=== PATIENT | female | born 2000 | race Caucasian/White ===

== ENCOUNTER 2021-06-26 15:18 | Inpatient (IN) ==
[2021-06-26] MEDS ORDERED: OXYTOCIN 30 UNITS/500 ML BAG IV PRN ×2 (15:51)
--- NOTE | 2021-06-26 16:00 | History & Physical Report ---
Date of Service June 26, 2021 Assessment & Plan (1) Supervision of normal first : Plan: 21yo at 40.1 weeks GA. eIOL 1. Fetus: Cat 1 2. Labor: Start oxytocin will AROM when able. 3. GBS negative 4. Vitals normal (2) Chlamydia infection complicating : Admission and Anticipated Discharge Date Admission Date: June 26, 2021 History of Present Illness Primary Care Provider: NO PCP 21yo at 40.1 weeks GA. Presents for eIOL. complicated by chlamydia infection with negative SUZIE at 36 weeks. OB Labs: Blood Type AB Positive 01/06/21 Antibody Screen NEGATIVE 01/06/21 Hemoglobin 12.2 g/dL (12.0-16.0) 03/31/21 Hematocrit 36.0 % (37-47) L 03/31/21 Mean Corpuscular Volume 88.6 fL (80-100) 01/06/21 Platelet Count 251 K/uL (130-400) 01/06/21 Rubella IgG Antibody Immune (Immune) 01/06/21 Rapid Plasma Reagin Nonreactive (Nonreactive) 01/06/21 Hepatitis B Surface Antigen Neg (Neg) 01/06/21 HIV (1&2) Ab and P24 Ag, 4th Gener Neg (Neg) 01/06/21 Glucose 1 Hour 50 gm Load 93 mg/dl (70-130) 03/31/21 OB Optional Labs: Chlamydia trachomatis RNA NOT DETECTED (NOT DETECTED) 06/03/21 Neisseria gonorrhoeae RNA NOT DETECTED (NOT DETECTED) 06/03/21 Labs Reviewed: declined genetics/cf/sma Allergies Allergy/AdvReac Type Severity Reaction Status Date / Time No Known Allergies Allergy Verified 06/25/21 14:45 Home Medications Medication Instructions Recorded Confirmed Type prenat.vits,carly,[id number] 1 tab PO DAILY 12/30/20 06/26/21 History Patient History Medical History (Updated 05/12/21 @ 14:03 by Elayne Orr MD, FACOG) History of chicken pox Varicella vaccination Surgical History (Updated 12/30/20 @ 10:56 by Kate Barnes) S/P appendectomy S/P wisdom tooth extraction Family History (Updated 12/30/20 @ 10:58 by Kate Barnes) Aunt Ovarian cancer Breast cancer Grandmother (Maternal) Colorectal cancer Grandfather (Paternal) Parkinson disease Grandmother (Paternal) Diabetes Social History (Updated 12/30/20 @ 11:00 by Kate Barnes) Smoking Status: Former smoker Hx Alcohol Use: No Hx Substance Use: No Preferred Language: Cuban marital status: Single marital status details: miracle Golden (18) [phone] Current Living Situation: Parent Current Living Situation Comment: lives with mother, yogesh current occupational status: employed current occupation: [employer] Feels Safe at Home: Yes Physical Exam Genitourinary: OB Exam Abdomen: + vertex Manual OB Exam: + cervical dilation (2.5), + cervical effacement 80% and + station -1 OB Exam Monitor Tracing: + external FHT monitor used, + external uterine monitor used and + category I Results & Data ([facility]) Vital Signs (Past 12 Hours) Vital Signs Pulse BP 06/26/21 15:48 88 103/56 L Coding Level of Care Code None Diagnoses Supervision of normal first Z34.00 Chlamydia infection complicating O98.819; A74.9
[2021-06-26 16:22] LABS: Hematocrit (blood only) 33.9 % (37-47); Hemoglobin 11.8 g/dL (12.0-16.0); Mean Corpuscular Hgb Conc 34.8 g/dL (32-36); Mean Corpuscular Volume 86.3 fL (80-100); Platelet Count 274 K/uL (130-400); RDW Coefficient of Variation 12.7 % (11.5-14.5); RDW Standard Deviation 40.1 fL (36.4-46.3); Red Blood Count 3.93 M/uL (4.2-5.4); White Blood Count 14.88 K/uL (4.8-10.8)
[2021-06-26] MEDS: LACTATED RINGER'S 1,000 ML IV PRN ×3 (16:30→23:29)
[2021-06-26] MEDS ORDERED: ePHEDrine sulfate 50 MG/ML AMP IV PRN (20:39)
[2021-06-26] MEDS ORDERED: NALBUPHINE HCL INJ 10 MG/ML AMP IV PRN (20:39)
[2021-06-26] MEDS ORDERED: NALOXONE HCL 1 MG in SODIUM CHLORIDE 0.9% 1000ML 1,000 ML IV PRN (20:39)
[2021-06-26] MEDS ORDERED: ONDANSETRON INJ 2 MG/ML 2 ML VIAL IV PRN (20:39)
[2021-06-26] MEDS ORDERED: diphenhydrAMINE 50 MG/ML VIAL IV PRN (20:39)
[2021-06-26] MEDS ORDERED: NALOXONE HCL 0.4 MG/1 ML VIAL/CARP IV PRN (20:39)
[2021-06-26] MEDS ORDERED: fentaNYL 2MCG/ML ROPIVACAINE 1.25MG/ML 100 ML BAG EPI PRN (20:39)
[2021-06-26] MEDS ORDERED: fentaNYL citrate 100 MCG/2 ML VIAL ONE (20:41)
[2021-06-26] MEDS ORDERED: SODIUM CHLORIDE 0.9% INJ 10 ML VIAL ONE (20:41)
[2021-06-26] MEDS ORDERED: BUPIVACAINE 0.25% 30 ML VIAL ONE (20:41)
[2021-06-26] MEDS ORDERED: ePHEDrine sulfate 50 MG/ML AMP ONE (20:41)
[2021-06-26] MEDS ORDERED: fentaNYL 2MCG/ML ROPIVACAINE 1.25MG/ML 100 ML BAG EPI ONE (20:42)
--- NOTE | 2021-06-26 20:51 | Anesthesiology Consultation ---
Date of Service June 26, 2021 Assessment & Plan (1) Encounter for pre-operative examination: Chart Review Chart Review: Patient NOT seen in Pre Admission Testing and Acceptable Risk for Labor Epidural Consults Requested none ASA ASA2 Proposed Anesthesia Anesthesia Type: Labor Epidural and CSE Risk / Benefits Reviewed With: PT / POA / Parent / Guardian, Accepts Plan and Informed Consent Obtained History Height/Weight Height: 5 ft 4 in Weight: 70.307 kg Allergies Allergy/AdvReac Type Severity Reaction Status Date / Time No Known Allergies Allergy Verified 06/25/21 14:45 Medications Home Medications Medication Instructions Recorded Confirmed Last Taken prenat.vits,carly,[id number] 1 tab PO DAILY 12/30/20 06/26/21 06/23/21 Active Medications Generic Name Dose Route Start Last Admin Trade Name Freq PRN Reason Stop Dose Admin Oxytocin 30 units in 500 mls @ 8 mls/hr 06/26/21 15:51 06/26/21 18:45 Pitocin IV 06/28/21 15:50 0.48 units/hr .Q24H PRN 8 mls/hr Labor Induction/Augmentation Titration Protocol 0.48 UNITS/HR Lactated Ringer's 1,000 mls @ 125 mls/hr 06/26/21 15:51 06/26/21 16:30 Lr IV 06/28/21 15:50 125 mls/hr .Q8H PRN Administration L&D Protocol Protocol NPO Date Last Intake of Fluids: 06/26/21 Time Last Intake of Fluids: 19:00 Date Last Intake of Solids: 06/26/21 Time Last Intake of Solids: 15:00 Past Medical History Medical History History of chicken pox Varicella vaccination Exercise / Class Metabolic Activity II 4-5 Yardwork/Stairs/Walk up hill Past Family History Family History Aunt Ovarian cancer Breast cancer Grandmother (Maternal) Colorectal cancer Grandfather (Paternal) Parkinson disease Grandmother (Paternal) Diabetes Past Surgical History Surgical History S/P appendectomy S/P wisdom tooth extraction Past Anesthesia History No Hx of Anesthesia Complications and No Family Hx of Anesthesia Complications History of PONV No Hx of PONV and No Hx of Motion Sickness Social History Smoking Status: Former smoker Hx Alcohol Use: No Hx Substance Use: No Review of Systems no chest pain or sob Physical Exam Vital Signs Last Vital Signs Temp 37.0 C 06/26/21 19:15 Pulse 82 06/26/21 20:43 Resp 18 06/26/21 19:15 BP 131/62 06/26/21 20:20 Pulse Ox 100 06/26/21 20:43 ENMT Mouth: no TMJ abnormality Thyromental Distance: > or= 3.5 Finger Breadths Mallampati Class: II Neck normal visual inspection Respiratory normal respiratory effort Auscultation: lungs clear to auscultation bilaterally Cardiovascular Rate/Rhythm: regular rate and regular rhythm Musculoskeletal Spine: normal cervical ROM Neurologic moves all extremities Psychiatric Orientation: alert and oriented x 3 Testing Laboratory Results 06/26/21 16:11 Blood Type AB Positive 06/26/21 16:11 Antibody Screen NEGATIVE 06/26/21 16:11
[2021-06-27] MEDS ORDERED: LIDOCAINE 1% LOCAL 20 ML VIAL ONE (03:25)
[2021-06-27] MEDS ORDERED: ACETAMINOPHEN 325 MG TAB PO PRN (03:44)
[2021-06-27] MEDS ORDERED: BENZOCAINE 20% AER SPR 82.5 GM CAN EXT PRN (03:44)
[2021-06-27] MEDS ORDERED: HYDROCORTISONE ACETATE 25 MG SUPP PR PRN (03:44)
[2021-06-27] MEDS ORDERED: OXYTOCIN 30 UNITS/500 ML BAG IV PRN (03:44)
[2021-06-27] MEDS ORDERED: DIPHTHERIA/TETANUS/PERTUSSIS 0.5 ML SYR/VIAL IM ONE (03:44)
[2021-06-27] MEDS ORDERED: SUPERCREAM 0.870% 15 GM JAR EXT PRN (03:44)
[2021-06-27] MEDS ORDERED: bisacodyL 10 MG SUPP PR PRN (03:44)
--- NOTE | 2021-06-27 07:01 | Anesthesiology Progress Note ---
Date of Service June 27, 2021 Anesthesia Post Procedure Vital Signs Vital Signs: Temp Pulse Pulse Resp BP BP Pulse Ox 06/27/21 06:48 37.0 C 80 18 106/68 06/27/21 05:12 74 113/61 06/27/21 04:57 75 113/61 06/27/21 04:42 76 127/58 L 06/27/21 04:38 81 99 06/27/21 04:33 75 99 06/27/21 04:31 79 93 06/27/21 04:28 79 99 06/27/21 04:23 81 99 06/27/21 04:18 78 98 06/27/21 04:13 79 97 06/27/21 04:08 82 99 06/27/21 04:03 79 97 06/27/21 03:58 87 99 06/27/21 03:57 83 116/58 L 06/27/21 03:53 82 100 06/27/21 03:48 84 99 06/27/21 03:43 90 99 06/27/21 03:42 90 120/59 L 06/27/21 03:38 90 99 06/27/21 03:33 96 H 99 06/27/21 03:28 90 99 06/27/21 03:27 97 H 125/57 L 06/27/21 03:23 96 H 100 06/27/21 03:18 93 H 98 06/27/21 03:15 108 H 93 06/27/21 03:14 110 H 142/98 H 06/27/21 03:13 107 H 96 06/27/21 03:08 93 H 99 06/27/21 03:03 104 H 98 06/27/21 02:59 98 H 121/69 06/27/21 02:58 115 H 100 06/27/21 02:53 120 H 97 06/27/21 02:48 104 H 95 06/27/21 02:44 107 H 117/80 91 06/27/21 02:43 97 H 100 06/27/21 02:38 101 H 94 06/27/21 02:36 96 H 92 06/27/21 02:33 87 99 06/27/21 02:28 82 99 06/27/21 02:25 109 H 93 06/27/21 02:23 112 H 100 06/27/21 02:18 106 H 96 06/27/21 02:14 103 H 126/65 89 L 06/27/21 02:13 88 100 06/27/21 02:08 93 H 99 06/27/21 02:07 94 H 92 06/27/21 02:03 91 H 100 06/27/21 01:58 101 H 131/82 100 06/27/21 01:53 126 H 97 06/27/21 01:48 89 96 06/27/21 01:43 81 127/74 97 06/27/21 01:38 90 98 06/27/21 01:33 99 H 99 06/27/21 01:29 90 116/62 06/27/21 01:28 92 H 99 06/27/21 01:23 95 H 98 06/27/21 01:18 94 H 100 06/27/21 01:13 83 126/78 97 06/27/21 01:08 86 99 06/27/21 01:03 82 97 06/27/21 01:01 36.8 C 18 06/27/21 00:58 86 120/76 97 06/27/21 00:53 84 98 06/27/21 00:48 87 97 06/27/21 00:43 90 100 06/27/21 00:42 86 122/72 06/27/21 00:38 84 98 06/27/21 00:33 80 98 06/27/21 00:28 81 95 06/27/21 00:27 72 96/51 L 06/27/21 00:23 73 95 06/27/21 00:18 73 97 06/27/21 00:13 77 97 06/27/21 00:12 76 99/56 L 06/27/21 00:08 75 99 06/27/21 00:05 36.9 C 16 06/27/21 00:03 80 100 06/26/21 23:59 76 108/59 L 06/26/21 23:58 79 100 06/26/21 23:53 80 97 06/26/21 23:48 77 99 06/26/21 23:43 88 100 06/26/21 23:42 85 101/55 L 06/26/21 23:38 92 H 97 06/26/21 23:33 83 98 06/26/21 23:28 77 91/52 L 98 06/26/21 23:23 79 97 12/16/21 23:18 76 95 06/26/21 23:13 75 95 06/26/21 23:12 78 86/47 L 06/26/21 23:08 76 95 06/26/21 23:03 79 95 06/26/21 22:58 76 94 06/26/21 22:57 78 84/46 L 94 06/26/21 22:53 75 95 06/26/21 22:52 78 94 06/26/21 22:48 77 95 06/26/21 22:44 78 94 06/26/21 22:43 77 85/49 L 95 06/26/21 22:38 82 95 06/26/21 22:33 73 97 06/26/21 22:30 80 94/50 L 06/26/21 22:29 76 93/55 L 94 06/26/21 22:28 78 97 06/26/21 22:23 81 96 06/26/21 22:18 76 97 06/26/21 22:14 75 86/48 L 06/26/21 22:13 76 97 06/26/21 22:10 37.0 C 16 06/26/21 22:08 78 97 06/26/21 22:03 74 98 06/26/21 21:58 65 97 06/26/21 21:55 70 106/59 L 06/26/21 21:53 72 112/63 97 06/26/21 21:51 73 107/58 L 06/26/21 21:49 68 110/61 06/26/21 21:48 77 97 06/26/21 21:47 67 108/59 L 06/26/21 21:45 64 105/59 L 06/26/21 21:43 72 104/61 96 06/26/21 21:41 73 110/64 06/26/21 21:39 75 109/62 06/26/21 21:38 72 96 06/26/21 21:37 72 108/59 L 06/26/21 21:35 68 109/59 L 92 06/26/21 21:34 76 132/81 06/26/21 21:33 82 98 06/26/21 21:31 72 112/61 06/26/21 21:29 74 118/63 06/26/21 21:28 74 99 06/26/21 21:27 70 115/63 06/26/21 21:25 77 115/63 06/26/21 21:23 81 111/62 98 06/26/21 21:21 70 114/64 06/26/21 21:19 75 107/55 L 06/26/21 21:18 81 119/60 97 06/26/21 21:17 78 115/58 L 06/26/21 21:15 78 115/57 L 06/26/21 21:13 76 113/65 97 06/26/21 21:11 78 115/71 06/26/21 21:09 77 114/66 06/26/21 21:08 81 98 06/26/21 21:07 74 112/62 06/26/21 21:05 84 112/73 06/26/21 21:03 91 H 113/78 100 06/26/21 21:01 88 114/85 06/26/21 21:00 91 H 133/81 06/26/21 20:58 99 H 99 06/26/21 20:55 78 133/77 06/26/21 20:53 84 100 06/26/21 20:48 83 100 06/26/21 20:43 82 100 06/26/21 20:20 83 131/62 06/26/21 19:18 85 119/65 06/26/21 19:15 37.0 C 18 06/26/21 18:46 74 18 109/61 06/26/21 18:02 74 18 110/65 06/26/21 17:23 18 06/26/21 16:54 18 06/26/21 15:54 37 C 88 18 103/56 L 06/26/21 15:48 88 103/56 L Transfer of Care Handoff Completed per policy Notes Mental Status: alert / awake / arousable and participated in evaluation Patient Amnestic to Procedure: Yes Nausea / Vomiting: adequately controlled Pain: adequately controlled Airway Patency, RR, SpO2: stable & adequate BP & HR: stable & adequate Hydration State: stable & adequate Anesthetic Complications: no major complications apparent and Pt Satisfied with anesthetic care
[2021-06-27] MEDS: DOCUSATE SODIUM 100 MG CAP PO SCH ×2 (07:59→20:23)
[2021-06-27] MEDS: FERROUS SULFATE 325 MG TAB PO SCH (07:59)
[2021-06-27] MEDS: PRENATAL VITAMIN 1 TAB PO SCH (07:59)
[2021-06-27] MEDS: IBUPROFEN 600 MG TAB PO PRN ×3 (08:05→20:23)
--- NOTE | 2021-06-27 09:44 | Delivery Summary ---
DATE OF SERVICE: 06/27/2021 PROCEDURE: Normal spontaneous vaginal delivery with right labial laceration repair. SURGEON: Fernando Resendez MD PREOPERATIVE DIAGNOSES: 1. Single intrauterine at 40 weeks 2 days gestational age. 2. History of chlamydia infection affecting status post test of cure. 3. Elective induction of labor. POSTOPERATIVE DIAGNOSES: 1. Single intrauterine at 40 weeks 2 days gestational age. 2. History of chlamydia infection affecting status post test of cure. 3. Elective induction of labor. 4. Status post procedure. ESTIMATED BLOOD LOSS: 150 mL. DRAINS: None. FLUIDS: Continuous lactated Ringer. URINE OUTPUT: Not measured. COMPLICATIONS: None. FINDINGS: Viable with weight of 6 pounds 6 ounces and Apgars of 7 and 9 at one and five tuan rene respectively. INDICATIONS: The patient presented for elective induction of labor. The patient was started on oxyt ocin per regular protocol. She later underwent artificial rupture of membranes for clear fluid and p rogressed in labor quickly. She did receive an epidural for anesthesia and progressed to complete-co mplete, +2 station, at which time she felt a strong urge to push. DESCRIPTION OF PROCEDURE: The patient progressed to 10 cm dilated, 100% effaced, positive 2 station, pushed over intact perineum with epidural anesthesia and delivered a viable with weight and Apgars as noted above. Head of the delivered in SHELLY position, restituted to left transverse. Nuchal cord x2 was noted, which was easily reduced. Body and shoulders quickly followed. was noted to be vigorous upon delivery and a 1-minute delayed cord clamping was initiated. Cord was then double clamped and cut and remained on maternal abdomen. Cord blood was obtained. Atte ntion was then turned to delivery of the placenta, which was delivered intact, 3-vessel cord, gentle cord traction. On inspection of the perineum, vagina, cervix, there was noted to be a small right la bial laceration, which was repaired with 3-0 Vicryl with interrupted stitch. Needle, sponge, and ins trument counts were correct at completion of the case. Both mother and were stable in the im mediate post-delivery period. Job ID: [id number]
[2021-06-28] MEDS: IBUPROFEN 600 MG TAB PO PRN ×2 (06:02→15:09)
[2021-06-28 06:57] LABS: Hematocrit (blood only) 29.7 % (37-47); Mean Corpuscular Hemoglobin 29.7 pg (25-34); Mean Corpuscular Hgb Conc 33.7 g/dL (32-36); Mean Corpuscular Volume 88.1 fL (80-100); Mean Platelet Volume 12.4 fL (7.4-10.4); Platelet Count 201 K/uL (130-400); RDW Coefficient of Variation 13.1 % (11.5-14.5); RDW Standard Deviation 42.2 fL (36.4-46.3); Red Blood Count 3.37 M/uL (4.2-5.4); White Blood Count 10.53 K/uL (4.8-10.8)
--- NOTE | 2021-06-28 08:00 | Obstetrical Progress Note ---
Date of Service June 28, 2021 Assessment & Plan (1) Encounter for care and examination after delivery: Plan: 21yo PPD 1 s/p at 40 weeks 2 days complicated by small labia laceration -Continue routine care -Vitals reviewed- HDS, afebrile -GBS neg -Encourage ambulation, regular diet -Pain control with ibuprofen, acetaminophen PRN -Encourage -Hgb 10.8 -discharge likely this afternoon -F/u in 6 weeks with OB after discharge Admission and Anticipated Discharge Date Admission Date: June 26, 2021 Supervising Physician Co-Signing Physician Notes Resident Physician Supervision Note: I interviewed and examined the patient. Discussed with Dr. Garcia and agree with findings and plan as documented in the note. Any exceptions or clarifications are listed here: Patient doing well. Is just 24 hours out from delivery and first time mom. Meeting milestones. If feels strongly and wants to leave this pm, can consider. Otherwise, probably staying to tomorrow. routine care. Documented By: Fatmata Martinez MD, FACOG Subjective Ambulation: yes Voiding: yes Passing Gas: yes BM: yes Diet Tolerance: regular Lochia: small Feeding Type: pumping + bottle feeding Current Pain Level(1-10): 5, abdominal/pelvic cramping Review of Systems Review of Systems: Denies fevers/chills. Denies dyspnea, cough. Denies chest pain. Denies breast pain or discharge. Denies dysuria. Denies headache. Denies nausea, vomiting. Physical Exam Physical Exam: General: Alert, oriented, no acute distress Cardiac: Regular rate and rhythm. No murmurs appreciated. Respiratory: Clear to auscultation, symmetric chest rise and fall. No wheezes or crackles. No increased work of breathing or accessory muscle use Abdomen: Soft, nontender. Fundus firm and palpable at 1 cm below umbilicus. No guarding or rebound. Extremities: Warm, dry. No lower extremity edema, erythema or swelling. Results & Data ([facility]) Vital Signs (Past 12 Hours) Vital Signs Temp Pulse Resp BP 06/28/21 04:45 37.0 C 85 18 102/60 06/27/21 23:30 36.6 C 86 18 104/61 Resident Activity Tracking Resident Involvement: Resident Care Provided Care Provided: OB Delivery
[2021-06-28] MEDS: PRENATAL VITAMIN 1 TAB PO SCH (08:17)
[2021-06-28] MEDS: FERROUS SULFATE 325 MG TAB PO SCH (08:17)
[2021-06-28] MEDS: DOCUSATE SODIUM 100 MG CAP PO SCH (08:17)
[2021-06-28] MEDS ORDERED: bisacodyL 5 MG TABEC PO SCH (20:00)
== END 2021-06-28 17:50 | disposition home or self-care (01) | DRG 807 ==
LOC: 4S1 15:38 → 4S2 06-27 05:43
DX: Z87.891 Personal history of nicotine dependence; O98.82 Other maternal infectious and parasitic diseases complicating childbirth; Z37.0 Single live birth; O70.0 First degree perineal laceration during delivery; A74.9 Chlamydial infection, unspecified; O69.81X0 Labor and delivery complicated by cord around neck, without compression, not applicable or unspecified; Z79.899 Other long term (current) drug therapy; Z3A.40 40 weeks gestation of pregnancy